=== PATIENT | male | born 1975 | race Caucasian/White ===

== ENCOUNTER 2020-12-28 11:33 | Emergency (ER) | payer SELFPAY ==
--- NOTE | 2020-12-28 12:45 | Event Note ---
ED Screening Note ED Screening Note: Belgian interpretation by Ms. 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 Further treatment and workup at subsequent clinical providers discretion. Patient/guardian urged not to elope from the ED as their condition may be serious if not clinically assessed and managed. Initial orders include: labs, XR Discussed case with Dr. Yoon, ER attending regarding concern for compartment syndrome, he advised to order screening labs and x-ray Charge nurse Miguel notified patient needs room RICARDO <HUBER BAEZ - Last Filed: 12/28/20 12:44> ED Screening Note: This initial assessment/diagnostic orders/clinical plan/treatment(s) is/are subject to change based on patients health status, clinical progression and re- assessment by fellow clinical providers in the ED. Further treatment and workup at subsequent clinical providers discretion. Patient/guardian urged not to elope from the ED as their condition may be serious if not clinically assessed and managed. Initial orders include: In addition to the aforementioned recommendations for management, I instructed the physician speech assistant to bring the patient back or have the patient brought back to the main emergency room emergently for evaluation <ALEIDA YOON - Last Filed: 12/28/20 13:36>
--- NOTE | 2020-12-28 13:28 | XRay Report ---
LEFT ELBOW 3 VIEWS LEFT FOREARM 2 VIEWS INDICATION: Left elbow and arm pain and swelling. COMPARISON: No relevant prior imaging study available. FINDINGS: Left elbow: There is a punctate ossific density adjacent to the tip of the coronoid process which may be a fracture of uncertain chronicity. This may be chronic given the lack of joint effusion. There i s mild diffuse soft tissue swelling about the elbow. No foreign bodies. Left forearm: There is mild diffuse soft tissue swelling in the proximal left forearm. No acute skele arabella abnormality. IMPRESSION: 1. Diffuse soft tissue swelling without definitive soft tissue gas or radiodense foreign body. 2. Punctate ossific density adjacent to the tip of the coronoid process is likely a chronic fracture given the lack of joint effusion. I do not have a history of recent trauma. Signer Name: Rj Kruger MD Signed: 12/28/2020 1:24 PM Workstation Name: [id number]
--- NOTE | 2020-12-28 13:39 | Emergency Department Report ---
ED General Adult HPI - General Chief complaint: Extremity Injury, Upper Stated complaint: left arm swelling PUI?: No Time Seen by Provider: 12/28/20 12:43 Source: patient, RN notes reviewed Mode of arrival: Ambulatory Limitations: No Limitations - History of Present Illness Initial comments: The patient was evaluated in the emergency department for symptoms described in the history of present illness. He/she was evaluated in the context of the global COVID-19 pandemic, which necessitated consideration that the patient might be at risk for infection with the virus that causes COVID-19. Institutional protocols and algorithms that pertain to the evaluation of patients at risk for COVID-19 are in a state of rapid change based on information released by regulatory bodies including the CDC and federal and state organizations. These policies and algorithms were followed during the patient's care in the emergency department. Please note that these policies, procedures and recommendations changed on a rapid basis. high school assistant principal: Shannen Espinoza The patient is a 45-year-old gentleman, who is right-hand dominant, who is not known to myself previously. He presents to the ER today with a complaint of painless swelling to the left forearm, dorsally and volarly. His symptoms have been present since Sunday. The patient reports no other injuries, or complaints, and he specifically denies weakness, numbness, and decrease in range of motion. Patient reports that he does a lot of heavy lifting for work, and had to use a wool washer on Sunday. He also reports that on Sunday and Sunday, he did a lot of heavy lifting. His swelling is painless, constant, does not radiate anywhere, does not appear to be getting worse, it does not have exacerbating relieving factors that he is aware of. He specifically denies weakness, tingling, numbness, and also denies loss of range of motion in his fingers, wrist, hand, elbow, and also denies pain with passive and active range of motion of the left upper extremity. He has no other injuries or complaints. -: Gradual, days(s) Location: left, upper extremity Severity scale (0 -10): 0 Consistency: constant Improves with: none Worsens with: none Associated Symptoms: denies other symptoms - Related Data Allergies Allergy/AdvReac Type Severity Reaction Status Date / Time No Known Allergies Allergy Unverified 12/28/20 12:35 ED Review of Systems ROS: Stated complaint: DR ALEJANDRO LT ARM PAIN Other details as noted in HPI Comment: All other systems reviewed and negative Musculoskeletal: denies: back pain, arthralgia, myalgia Neurological: denies: numbness, paresthesias ED Past Medical Hx - Past Medical History Previous Medical History?: No - Surgical History Past Surgical History?: No - Social History Smoking Status: Never Smoker Substance Use Type: None ED Physical Exam - General Limitations: Language Barrier General appearance: alert, in no apparent distress - Head Head exam: Present: atraumatic, normocephalic - Eye Eye exam: Present: normal appearance, EOMI. Absent: nystagmus - ENT ENT exam: Present: normal exam, normal orophraynx, mucous membranes moist, normal external ear exam - Neck Neck exam: Present: normal inspection, full ROM. Absent: tenderness, meningismus - Respiratory Respiratory exam: Present: normal lung sounds bilaterally. Absent: respiratory distress, wheezes, rales, rhonchi, stridor, decreased breath sounds - Cardiovascular Cardiovascular Exam: Present: regular rate, normal rhythm, normal heart sounds. Absent: bradycardia, tachycardia, irregular rhythm, systolic murmur, diastolic murmur, rubs, gallop - GI/Abdominal GI/Abdominal exam: Present: soft, normal bowel sounds. Absent: distended, tenderness, guarding, rebound, rigid, pulsatile mass - Rectal Rectal exam: Present: deferred - Extremities Exam Extremities exam: Present: normal inspection - Expanded Upper Extremity Exam Left General: Absent: laceration, abrasion, nail injury (#), foreign body, amputation, avulsion Shoulder Exam: Present: normal inspection, full ROM. Absent: tenderness, swelling, crepidus, dislocation, erythema, tenderness over AC joint Upper Arm exam: Present: normal inspection, full ROM. Absent: tenderness, swelling, abrasion, laceration, ecchymosis, deformity, crepidus, dislocation, erythema Elbow exam: Present: normal inspection, full ROM. Absent: tenderness, swelling, abrasion, laceration, ecchymosis, deformity, crepidus, dislocation, erythema, effusion, pain w/ pronation/supination, tenderness over radial head Forearm Wrist exam: Present: full ROM, swelling. Absent: tenderness, abrasion, laceration, ecchymosis, deformity, crepidus, dislocation, erythema, tenderness over anatomical snuff box, pain with axial thumb loading Hand Wrist exam: Present: normal inspection, full ROM. Absent: tenderness, swelling, abrasion, laceration, ecchymosis, deformity, crepidus, dislocation, erythema, amputation, nail avulsion, subungual hematoma Neuro motor exam: Present: wrist extension intact, thumb opposition intact, thumb IP flexion intact, thumb adduction intact, fingers 2-5 abduction intact Neurosensory exam: Present: 2-point discrimination, radial nerve intact, ulnar nerve intact, median nerve intact Vascular: Present: normal capillary refill, radial pulse, brachial pulse. Absent: vascular compromise, pulse deficit radial art, pulse deficit ulnar art, pulse deficit brachial art - Back Exam Back exam: Present: normal inspection, full ROM. Absent: tenderness, CVA tende rness (R), CVA tenderness (L), paraspinal tenderness, vertebral tenderness - Neurological Exam Neurological exam: Present: alert, oriented X3, other (No facial droop. Tongue midline. Extraocular movements intact bilaterally. Facial sensation intact to light touch in V1, V2, V3 distribution bilaterally. 5 and a 5 strength in 4 extremities. Sensation intact to light touch in 4 extremities.). Absent: motor sensory deficit - Psychiatric Psychiatric exam: Present: normal affect, normal mood - Skin Skin exam: Present: warm, dry, intact, normal color. Absent: rash ED Course Vital Signs 12/28/20 12/28/20 12:42 14:01 Temperature 98.9 F Pulse Rate 63 Respiratory 18 14 Rate Blood Pressure 110/76 [Right] O2 Sat by Pulse 97 Oximetry - Reevaluation(s) Reevaluation #1: 12/28/20 14:42 Differential diagnosis, including the not limited to: Overuse injury, tendinitis , compartment syndrome, localized rhabdomyolysis Assessment and plan: 45-year-old male, who is right-hand dominant, presenting with firm dorsal and volar left forearm compartments, which more tense than when compared to contralateral anatomy, without evidence of neurovascular compromise, without pain, without redness, pus or streaking, and without evidence of any neurovascular deficit, and without exam evidence of flexor/extensor/finger/wrist/elbow/shoulder motor dysfunction. Compartment syndrome is very unlikely given lack of pain, and given lack of neurovascular, tendon deficit, given that there is no pain with passive range of motion. Suspect overuse syndrome. Lactic acid within normal limits. CK pending. X-ray showed no fracture or dislocation. Do not clinically suspect cellulitis at this time. Patient declines pain medication at this time. He is otherwise in no acute distress. Reassess after CK has resulted 12/28/20 15:19 Patient in no acute distress. He is noted to be manipulating and playing with his cellular phone with his left upper extremity. CK 2200 minimally elevated. His examination at this time is not suggestive of compartment syndrome. He will be given IV fluids, counseled to participate with copious oral fluids, rest of the left upper extremity, and follow-up in 2 days for repeat checkup/evaluation/CK level. high school assistant principal, Ren Espinoza used to instruct patient, who verbalized understanding. ED Medical Decision Making - Lab Data Result diagrams: 12/28/20 13:39 12/28/20 13:39 Vital Signs 12/28/20 12/28/20 12:42 14:01 Temperature 98.9 F Pulse Rate 63 Respiratory 18 14 Rate Blood Pressure 110/76 [Right] O2 Sat by Pulse 97 Oximetry Lab Results 12/28/20 12/28/20 12/28/20 Range/Units 13:39 13:39 13:39 WBC 5.7 (4.5-11.0) K/mm3 RBC 4.57 (3.65-5.03) M/mm3 Hgb 14.6 (11.8-15.2) gm/dl Hct 43.0 (35.5-45.6) % MCV 94 (84-94) fl MCH 32 (28-32) pg MCHC 34 (32-34) % RDW 13.1 L (13.2-15.2) % Plt Count 232 (140-440) K/mm3 Lymph % (Auto) 24.5 (13.4-35.0) % Dare % (Auto) 11.3 H (0.0-7.3) % Eos % (Auto) 11.8 H (0.0-4.3) % Baso % (Auto) 0.2 (0.0-1.8) % Lymph # (Auto) 1.4 (1.2-5.4) K/mm3 Dare # (Auto) 0.6 (0.0-0.8) K/mm3 Eos # (Auto) 0.7 H (0.0-0.4) K/mm3 Baso # (Auto) 0.0 (0.0-0.1) K/mm3 Seg Neutrophils % 52.2 (40.0-70.0) % Seg Neutrophils # 3.0 (1.8-7.7) K/mm3 PT 12.7 (12.2-14.9) Sec. INR 0.96 (0.87-1.13) Lactic Acid 0.60 L (0.7-2.0) mmol/L - Radiology Data Radiology results: report reviewed, image reviewed LEFT ELBOW 3 VIEWS LEFT FOREARM 2 VIEWS INDICATION: Left elbow and arm pain and swelling. COMPARISON: No relevant prior imaging study available. FINDINGS: Left elbow: There is a punctate ossific density adjacent to the tip of the coronoid process which may be a fracture of uncertain chronicity. This may be chronic given the lack of joint effusion. There is mild diffuse soft tissue swelling about the elbow. No foreign bodies. Left forearm: There is mild diffuse soft tissue swelling in the proximal left forearm. No acute skeletal abnormality. IMPRESSION: 1. Diffuse soft tissue swelling without definitive soft tissue gas or radiodense foreign body. 2. Punctate ossific density adjacent to the tip of the coronoid process is likely a chronic fracture given the lack of joint effusion. I do not have a history of recent trauma. Signer Name: Rj Kruger MD Signed: 12/28/2020 12:24 PM Workstation Name: [id number] Critical care attestation.: If time is entered above; I have spent that time in minutes in the direct care of this critically ill patient, excluding procedure time. ED Disposition Clinical Impression: Localized swelling of left forearm, Elevated CK Disposition: DC-01 TO HOME OR SELFCARE Is pt being admited?: No Does the pt Need Aspirin: No Condition: Good Instructions: Creatine Kinase Test Additional Instructions: Rest t, avoid heavy lifting and strenuous physical activity. Do not use the left arm for any work-related activities whatsoever, until cleared to do so by your primary care doctor. Apply ice packs and heat packs as needed to left upper extremity for swelling. Drink at least 6 cups of water per day indefinitely. Follow-up in 48 hours / 2 days laboratory testing/CK testing, and for repeat physical examination. Please return to the emergency room right away with new pain, worsened pain, migration of pain, projectile vomiting, change in mental status, confusion, left upper extremity weakness/numbness. We suspect that patient has an overuse syndrome in his left upper extremity, which is causing his pain and the swelling. However, it is very important to closely follow this examination, to assess for interval improvement. Local primary care doctors include the following: Dr. Philip Ferrer [facility]. Descanse , evite levantar objetos pesados y la actividad fsica extenuante. No u se el brazo miriam para ninguna actividad relacionada con el trabajo, hasta que paulson mdico de atencin primaria lo autorice. Aplique compresas de hielo y compresas trmicas segn sea necesario en la extremidad superior izquierda para la hinchazn. Terrie al menos 6 tazas de agua al da de forma indefinida. Seguimiento en 48 horas / 2 cast de pruebas de laboratorio / pruebas de CK, y para repetir el examen fsico. Regrese a la vero de emergencias de inmediato con un nuevo dolor, empeoramiento del dolor, migracin del dolor, vmitos en proyectil, cambio en el estado mental, confusin, debilidad / entumecimiento de la extremidad superior izquierda. Sospechamos que el paciente tiene un sndrome de sobreuso en la extremidad superior izquierda, que le est provocando el dolor y la hinchazn. Sin embargo, es muy importante seguir de cerca adrian examen para evaluar la mejora del intervalo. Los mdicos de atencin primaria locales incluyen a los siguientes: [facility] Referrals: DAVIS FERRER MD [Staff Physician] - 3-5 Days MAYA WELLS MD [Staff Physician] - 3-5 Days [facility] [Provider Group] - 3-5 Days Forms: Work/School Release Form(ED) Print Language: FRENCH
[2020-12-28 14:22] LABS: Basophils % (Auto) 0.2 % (0.0-1.8); Eosinophils # (Auto) 0.7 K/mm3 (0.0-0.4); Eosinophils % (Auto) 11.8 % (0.0-4.3); Hemoglobin 14.6 gm/dl (11.8-15.2); Lymphocytes # (Auto) 1.4 K/mm3 (1.2-5.4); Lymphocytes % (Auto) 24.5 % (13.4-35.0); Mean Corpuscular HGB Conc 34 % (32-34); Mean Corpuscular Volume 94 fl (84-94); Monocytes # (Auto) 0.6 K/mm3 (0.0-0.8); Monocytes % (Auto) 11.3 % (0.0-7.3); Platelet Count 232 K/mm3 (140-440); Red Blood Count 4.57 M/mm3 (3.65-5.03); Red Cell Distribution Width 13.1 % (13.2-15.2)
[2020-12-28 14:35] LABS: INR 0.96 (0.87-1.13)
[2020-12-28 14:39] LABS: Alanine Aminotransferase 40 units/L (7-56); Albumin 4.1 g/dL (3.9-5); BUN/Creatinine Ratio 30; Blood Urea Nitrogen 21 mg/dL (9-20); Hemolysis Index 35
[2020-12-28] MEDS ORDERED: LACTATED RINGERS 2,000 ML IV ONE (14:51)
[2020-12-28 14:56] LABS: Erythrocyte Sedimentation Rate 18 mm/Hr (0-20)
[2020-12-28 17:34] VITALS: BP 105/72
== END 2020-12-28 17:36 | disposition home or self-care (01) ==
LOC: ED 11:33
DX: R22.32 Localized swelling, mass and lump, left upper limb (principal); R74.8 Abnormal levels of other serum enzymes
CPT/HCPCS: 36415; 73080; 73090; 80053; 82140; 82550; 85025; 85610; 85652; 86140; 96360; 96361; 99284; J7120